=== PATIENT | female | born 1955 | race Two or more races ===

== ENCOUNTER 2020-02-27 15:22 | Outpatient (CLI) | payer OTHER | END 2020-02-27 15:33 | disposition home or self-care (01) | LOC: RAD 15:22 | PROVIDERS: ATTEND Pulmonary Function Technologist | DX: J45.998 Other asthma (principal); J15.7 Pneumonia due to Mycoplasma pneumoniae ==

== ENCOUNTER 2021-03-21 09:26 | Outpatient (CLI) | payer OTHER | END 2021-03-21 09:38 | disposition home or self-care (01) | LOC: TOM 09:26 | PROVIDERS: ATTEND Specialist | DX: K57.90 Diverticulosis of intestine, part unspecified, without perforation or abscess without bleeding (principal) ==